=== PATIENT | male | born 1950 | race Caucasian/White ===

== ENCOUNTER 2018-12-21 23:33 | Emergency (ER) | payer OTHER ==
[2018-12-21 23:52] VITALS: BMI 26.6
--- NOTE | 2018-12-22 00:15 | PDOC ---
Attending Attestation - Resident Resident Name: Salina Marques - ED Attending Attestation I have performed the following: I have examined & evaluated the patient, The case was reviewed & discussed with the resident, I agree w/resident's findings & plan - Medical Decision Making 12/22/18 01:57 Patient Name: FELICITY NICHOLSON THIS IS A PRELIMINARY REPORT FROM [facility] DATE OF SERVICE: 2018-12-22 01:09:17 IMAGES: 117 EXAM: CT HEAD WITHOUT CONTRAST No acute brain parenchymal abnormality. No hemorrhage, mass or acute territorial infarct. Atrophy and chronic small vessel ischemic changes. Hypoplastic bilateral maxillary sinuses, opacified on the left. Visualized mastoid air cells clear
[2018-12-22] MEDS ORDERED: HYDROCHLOROTHIAZIDE 50 MG TABLET PO ONE (00:18)
[2018-12-22] MEDS ORDERED: HYDROCHLOROTHIAZIDE 25 MG TABLET (FP) ONE (00:25)
[2018-12-22] MEDS ORDERED: ACETAMINOPHEN 325 MG TABLET (FP) ONE (00:34)
[2018-12-22] MEDS ORDERED: ACETAMINOPHEN 500 MG TABLET (FP) PO ONE (00:34)
--- NOTE | 2018-12-22 00:46 | PDOC ---
History of Present Illness - General Chief Complaint: Blood Pressure Problem Stated Complaint: HYPERTENTION Time Seen by Provider: 12/22/18 00:08 History Source: Patient, Family (son) Exam Limitations: Language Barrier - History of Present Illness Initial Comments: 12/22/18 00:41 68y M with PMH of CVA (2y ago), HTN, NIDDM presenting to ED with complaints of elevated bp, headache and feeling weak. Son states patient came from a few weeks ago, had a physical by the PMD recently and everything was fine. Pt has been complaining of weakness for the past few days but his bp was elevated today at home (>190s systolic). He endorses diffuse headache. Denies chest pain , sob, changes in vision, back pain, abdominal pain, n/v/d, urinary symptoms, constipation, fevers, chills, focal weakness, numbness/tingling, dizziness. He took his BP meds this AM. PMD: Aretha PMH: see hpi Meds: losartan, metformin, Plavix, meclizine Allergies: nkda Past History - Past Medical History Allergies/Adverse Reactions: Allergies Allergy/AdvReac Type Severity Reaction Status Date / Time No Known Allergies Allergy Verified 12/21/18 23:45 CVA: No (TIA) COPD: No Diabetes: Yes HTN: Yes - Psycho Social/Smoking Cessation Hx Smoking History: Never smoked Review of Systems - Review of Systems Constitutional: Yes: Weakness HEENTM: No: Symptoms Reported Respiratory: No: Symptoms reported Cardiac (ROS): No: Symptoms Reported ABD/GI: No: Symptoms Reported : No: Symptoms Reported Musculoskeletal: No: Symptoms Reported Integumentary: No: Symptoms Reported Neurological: Yes: Headache *Physical Exam - Vital Signs Last Vital Signs Temp Pulse Resp BP Pulse Ox 97.2 F L 64 16 185/90 H 99 12/21/18 23:45 12/21/18 23:45 12/21/18 23:45 12/21/18 23:45 12/21/18 23:45 - Physical Exam General Appearance: Yes: Nourished, Appropriately Dressed. No: Apparent Distress HEENT: positive: EOMI, RAMIRO, Normal ENT Inspection Neck: positive: Trachea midline, Supple. negative: Lymphadenopathy (R), Lymphadenopathy (L) Respiratory/Chest: positive: Lungs Clear, Normal Breath Sounds. negative: Crackles, Rales, Rhonchi, Stridor, Wheezing Cardiovascular: positive: Regular Rhythm, Regular Rate, S1, S2. negative: Edema , JVD, Murmur Vascular Pulses: Dorsalis-Pedis (R): 1+, Doralis-Pedis (L): 1+ Gastrointestinal/Abdominal: positive: Normal Bowel Sounds, Soft. negative: Tender, Guarding, Mass Musculoskeletal: negative: CVA Tenderness Extremity: positive: Normal Capillary Refill. negative: Swelling, Calf Tenderness, Erythema Integumentary: positive: Normal Color, Dry, Warm, Rash (on chest and back, papular and diffuse, no pruritis) Neurologic: positive: treasury agent II-XII NML intact, Fully Oriented, Alert, Normal Mood/ Affect, Normal Response, Motor Strength 06/22 ED Treatment Course - LABORATORY CBC & Chemistry Diagram: 12/22/18 00:47 12/22/18 00:47 - RADIOLOGY Radiology Studies Ordered: Category Date Time Status CHEST PA & LAT [RAD] Stat Radiology 12/22/18 00:19 Taken - Medications Given in the ED: ED Medications Discontinued Medications Generic Name Dose Route Start Last Admin Trade Name Freq PRN Reason Stop Dose Admin Hydrochlorothiazide 50 mg 12/22/18 00:18 12/22/18 00:29 Hctz - PO 12/22/18 00:19 50 mg ONCE ONE Administration Medical Decision Making - Medical Decision Making 12/22/18 00:44 68y M presenting to ED with complaints of headache and elevated bp and generalized weakness. vitals: hypertensive. afebrile, saturating well on ra, normocardic ddx includes but not limited to acs, electrolyte imbalance, uti llow suspicion for stroke given no focal neurological symptoms. will order basic labs including trop, ua , ucx, cxr ekg 975mg tylenol for headache. hctz ordered by Dr. Harper 12/22/18 06:[address] head: chornic microvascular ischemic changes. all labs wnl. ekg: nsr at 62bpm. no signs of acute ischemia. will dc home, given return precautions. likely a viral exanthem on skin which could explain weakness. pt has appintment on Saturday with pmd. given return precautions. Discharge - Discharge Information Problems reviewed: Yes Clinical Impression/Diagnosis: Hypertension Qualifiers: Hypertension type: unspecified Qualified Code(s): I10 - Essential (primary) hypertension Condition: Good Disposition: HOME - Admission No - Follow up/Referral Referrals: Devin Carias MD [Primary Care Provider] - - Patient Discharge Instructions Patient Printed Discharge Instructions: DI for High Blood Pressure Additional Instructions: Hoy lo vieron en la ellen de emergencias por presin arterial mandy. El anlisis de good es normal. La tomografa computarizada tambin es normal. Contine tomando los medicamentos para la presin arterial segn las indicaciones. Quinn katy tika con el Dr. Carias con respecto a la presin arterial y la visita al [place]. Intenta programar katy tika esta semana. La erupcin no parece ser infecciosa. Puede anna Benadryl si comienza a picar. Regrese a la ellen de emergencias si el dolor de yvan empeora, desarrolla dolor en el pecho, la erupcin es peor, tiene entumecimiento / hormigueo o si se desarrolla algn sntoma nuevo o preocupante. Carolyn You were seen in the emergency room today for high blood pressure. The blood work is normal. The CT scan is also normal. Please continue to take the blood pressure medications as directed. Please make an appointment with Dr. Carias regarding the blood pressure and ED visit. Try to schedule an appointment this week. The rash does not appear to be infectious. You can take Benadryl if it starts to itch. Come back to the emergency room if headache worsens, you develop chest pain, the rash is worse, you have numbness/tingling or if any new or concerning symptom develops. Thank you - Post Discharge Activity
[2018-12-22 00:56] LABS: BASO % 0.9 % (0-2.0); EOS % 1.7 % (0-4.5); HEMATOCRIT 47.3 % (35.4-49); HEMOGLOBIN 16.9 GM/dL (11.7-16.9); LYMPH % 45.3 % (8-40); MCH 33.9 pg (25.7-33.7); MCHC 35.8 g/dl (32.0-35.9); MEAN CELL VOLUME 94.9 fl (80-96); MEAN PLT VOLUME 9.1 fl (7.5-11.1); MONO % 8.7 % (3.8-10.2); NEUT % 43.4 % (42.8-82.8); PLATELET COUNT 195 K/MM3 (134-434); RBC 4.98 M/mm3 (4.00-5.60); RDW 13.7 % (11.9-15.9); WHITE BLOOD COUNT 7.5 K/mm3 (4.0-10.0)
[2018-12-22 01:10] LABS: INR 0.97 (0.83-1.09); PROTHROMBIN TIME (PATIENT) 11.4 SEC (9.7-13.0)
[2018-12-22 01:11] LABS: EPI CELLS 0.8 /HPF (0-5/HPF); HYALINE CASTS 3 /lpf (0-8); PH,URINE 5.5 (5.0-8.0); URINE APPEARANCE CLEAR; URINE BACTERIA 0 /hpf (NEGATIVE); URINE BILIRUBIN NEGATIVE (NEGATIVE); URINE COLOR YELLOW; URINE GLUCOSE (UA) NEGATIVE (NEGATIVE); URINE KETONE NEGATIVE (NEGATIVE); URINE LEUK ESTERASE NEGATIVE (NEGATIVE); URINE NITRITE NEGATIVE (NEGATIVE); URINE PROTEIN 3+ (NEGATIVE); URINE RBC 0 /hpf (0-4); URINE WBC 1 /hpf (0-5)
[2018-12-22] MEDS ORDERED: LISINOPRIL 20 MG TABLET (FP) PO ONE (01:58)
[2018-12-22 01:59] LABS: ALBUMIN 3.6 g/dl (3.4-5.0); BILIRUBIN,TOTAL 0.7 mg/dL (0.2-1); BLOOD UREA NITROGEN 14.7 mg/dL (7-18); CALCIUM 8.8 mg/dL (8.5-10.1); CREATININE 1.3 mg/dL (0.55-1.3); POTASSIUM 3.8 mmol/L (3.5-5.1); TOT PROT 7.2 g/dl (6.4-8.2)
[2018-12-22 02:23] VITALS: BP 164/92; PULSE 58
[2018-12-22] MEDS ORDERED: LISINOPRIL 20 MG TABLET (FP) ONE (02:26)
[2018-12-22 02:40] VITALS: TEMP 97.4
--- NOTE | 2018-12-22 10:01 | EKG ---
Test Reason : Blood Pressure : / mmHG Vent. Rate : 062 BPM Atrial Rate : 062 BPM P-R Int : 150 ms QRS Dur : 120 ms QT Int : 418 ms P-R-T Axes : 049 -44 020 degrees QTc Int : 424 ms NORMAL SINUS RHYTHM LEFT AXIS DEVIATION NON-SPECIFIC INTRA-VENTRICULAR CONDUCTION DELAY ABNORMAL ECG NO PREVIOUS ECGS AVAILABLE Confirmed by KALEB BA MD ([id number]) on 12/22/2018 10:00:51 AM Referred By: Confirmed By:KALEB BA MD
== END 2018-12-22 02:40 | disposition home or self-care (01) ==
LOC: JER 23:33
DX: I10 Essential (primary) hypertension (principal); B08.8 Other specified viral infections characterized by skin and mucous membrane lesions; E11.9 Type 2 diabetes mellitus without complications; Z79.84 Long term (current) use of oral hypoglycemic drugs; Z86.73 Personal history of transient ischemic attack (TIA), and cerebral infarction without residual deficits; Z79.02 Long term (current) use of antithrombotics/antiplatelets
CPT/HCPCS: 36415; 70450-TC; 71046-TC-FY; 80053; 81003; 84484; 85025; 85610; 86060; 86787; 87086; 93005; 93010; 99284-25